=== PATIENT | male | born 1995 | race Caucasian/White ===

== ENCOUNTER 2016-08-17 11:26 | Inpatient (IN) | payer OTHER ==
[~2016-08-17] VITALS: Ht 180.3 cm; Wt 82.2 kg
[2016-08-17] VITALS (7 sets, daily range): BP systolic 125–133; BP diastolic 57–67
[2016-08-17 12:51] LABS: BASOPHIL COUNT 0.1 K/uL (0-0.1); EOSINOPHIL (%) 1.8 % (0-5); EOSINOPHIL COUNT 0.3 K/uL (0-0.3); HEMATOCRIT 45.6 % (38.0-50.0); IMMATURE GRANULOCYTE (%) 1.5 % (0.0-0.7); IMMATURE GRANULOCYTE COUNT 0.2 K/uL; INSTRUMENT ABS NEUTROPHIL CT 12.9 K/uL; LYMPHOCYTE COUNT 1.2 K/uL (1.0-2.8); MCH 30.2 PG (29.0-34.0); MCHC 33.6 G/DL (30.0-36.0); MCV 89.9 FL (86-99); MEAN PLAT.VOLUME 9.5 uM^3 (9.0-12.4); MONOCYTE (%) 6.5 % (3-12); NEUTROPHIL COUNT 12.9 K/uL (1.8-6.4); PLATELET COUNT 199 K/uL (156-360); RBC DIS.WIDTH-CV 13.5 % (11.8-14.6); RBC DIS.WIDTH-SD 44.8 % (39-53); RED BLOOD COUNT 5.07 M/uL (4.00-5.50); WHITE BLOOD COUNT 15.7 K/uL (4.1-10.2)
[2016-08-17 13:00] LABS: AMYLASE 62 IU/L (1-118); CHLORIDE 109 mEq/L (99-109); POTASSIUM 4.4 mEq/L (3.7-5.4); SODIUM 140 mEq/L (136-147)
[2016-08-17 13:02] LABS: GLUCOSE 98 mg/dL (70-99)
[2016-08-17 13:03] LABS: ANION GAP 16 MEQ/L (2-14)
[2016-08-17 13:05] LABS: GFR ESTIMATE (CALCULATED) > 59 mL/min/; SERUM ETHYL ALCOHOL < 10 mg/dL
[2016-08-17 13:06] LABS: UREA NITROGEN (BUN) 24 mg/dL (9-23)
[2016-08-17 13:06] LABS: ADD MIUA? YES; BILIRUBIN NEGATIVE; BLOOD LARGE; COLOR YELLOW ((YELLOW)); GLUCOSE (STRIP) NEGATIVE; KETONES NEGATIVE; LEUKOCYTES NEGATIVE; NITRITE NEGATIVE; PROTEIN (STRIP) 30; SPECIFIC GRAVITY 1.043 (1.000-1.030); UROBILINOGEN 0.2 MG/DL (0.2-1.0)
[2016-08-17 13:08] LABS: LIPASE 51 U/L (1.0-51.0)
[2016-08-17 13:22] LABS: BACTERIA RARE /HPF; EPITHELIAL CELLS RARE /HPF; MUCUS TRACE /LPF; RED BLOOD CELLS TNTC /HPF (0-5); UCUL ADDED? NO
[2016-08-17 13:24] LABS: ADD MEDTOX COMMENT Y; AMPHETAMINE NEGATIVE (500 ng/mL); BARBITURATES NEGATIVE (200 ng/mL); BENZODIAZEPINES NEGATIVE (150 ng/mL); COCAINE NEGATIVE (150 ng/mL); INTERNAL CONTROLS VALID? YES; METHADONE NEGATIVE (200 ng/mL); METHAMPHETAMINE NEGATIVE (500 ng/mL); OPIATES (MORPHINE) PRESUMPTIVE POSITIVE (100 ng/mL); OXYCODONE NEGATIVE (100 ng/mL); PHENCYCLIDINE NEGATIVE (25 ng/mL); PROPOXYPHENE NEGATIVE (300 ng/mL); THC CANNABINOIDS PRESUMPTIVE POSITIVE (50 ng/mL); TRICYCLIC ANTIDEPRESSANTS NEGATIVE (300 ng/mL)
[2016-08-17] MEDS ORDERED: RISPERIDONE2 MG PO (14:47)
[2016-08-17] MEDS ORDERED: RISPERIDONE0.5 MG PO (14:47)
[2016-08-17] MEDS ORDERED: LAMICTAL100 MG PO (14:48)
[2016-08-17 18:09] LABS: METH RESISTANT S AUREUS PCR NEGATIVE (NEGATIVE)
[2016-08-17 19:04] LABS: PROBE CHECK PASS; SPECIMEN PROCESSING CONTROL PASS
[2016-08-18] VITALS (16 sets, daily range): BP systolic 115–141; BP diastolic 46–89
[2016-08-18 06:22] LABS: HEMATOCRIT 39.3 % (38.0-50.0); MCH 30.3 PG (29.0-34.0); MCHC 33.8 G/DL (30.0-36.0); MCV 89.5 FL (86-99); MEAN PLAT.VOLUME 9.3 uM^3 (9.0-12.4); PLATELET COUNT 202 K/uL (156-360); RBC DIS.WIDTH-CV 13.3 % (11.8-14.6); RBC DIS.WIDTH-SD 44.2 % (39-53); RED BLOOD COUNT 4.39 M/uL (4.00-5.50)
[2016-08-18 06:23] LABS: WHITE BLOOD COUNT 9.9 K/uL (4.1-10.2)
[2016-08-18 06:47] LABS: ALKALINE PHOSPHATASE 62 IU/L (3-129); ANION GAP 10 MEQ/L (2-14); CHLORIDE 100 MEQ/L (99-109); GFR ESTIMATE (CALCULATED) > 59 mL/min/; POTASSIUM 4.4 MEQ/L (3.7-5.4); SAMPLE HEMOLYSIS CHECK 0; SAMPLE ICTERIC CHECK 0; SAMPLE LIPEMIA CHECK 0; SODIUM 135 MEQ/L (136-147); TOTAL BILIRUBIN 0.6 MG/DL (0.0-1.0); UREA NITROGEN (BUN) 15 mg/dL (9-23)
[2016-08-18 06:50] LABS: GLUCOSE 151 mg/dL (70-99)
[2016-08-18 10:30] LABS: TROP-I INTERPRETATION NEGATIVE; TROPONIN-I 0.03 ng/mL (0.0-0.30)
[2016-08-18 10:32] LABS: CK-MB 13.4 ng/mL (0.0-4.9)
[2016-08-18 10:43] LABS: TOTAL CK 1314 IU/L (1-294)
[2016-08-18 10:44] LABS: CREATINE KINASE 1314 IU/L (1-294)
[2016-08-19] VITALS (18 sets, daily range): BP systolic 90–141; BP diastolic 42–71
[2016-08-19 06:31] LABS: ANION GAP 6 MEQ/L (2-14); CHLORIDE 101 MEQ/L (99-109); GFR ESTIMATE (CALCULATED) > 59 mL/min/; GLUCOSE 119 mg/dL (70-99); SAMPLE HEMOLYSIS CHECK 0; SAMPLE ICTERIC CHECK 0; SAMPLE LIPEMIA CHECK 0; SODIUM 135 MEQ/L (136-147); UREA NITROGEN (BUN) 14 mg/dL (9-23)
[2016-08-19 07:05] LABS: MCHC 34.5 G/DL (30.0-36.0); MCV 89.8 FL (86-99); MEAN PLAT.VOLUME 9.7 uM^3 (9.0-12.4); NRBC (%) 0.3 /100 WBC (0-0); PLATELET COUNT 165 K/uL (156-360); RBC DIS.WIDTH-CV 13.2 % (11.8-14.6); RBC DIS.WIDTH-SD 43.8 % (39-53)
[2016-08-19 07:29] LABS: RED BLOOD COUNT 3.23 M/uL (4.00-5.50)
[2016-08-20] VITALS (9 sets, daily range): BP systolic 112–131; BP diastolic 54–66
[2016-08-20 06:02] LABS: HEMATOCRIT 28.7 % (38.0-50.0); MCH 30.4 PG (29.0-34.0); MCHC 33.4 G/DL (30.0-36.0); MCV 90.8 FL (86-99); MEAN PLAT.VOLUME 9.2 uM^3 (9.0-12.4); PLATELET COUNT 150 K/uL (156-360); RBC DIS.WIDTH-CV 13.1 % (11.8-14.6); RBC DIS.WIDTH-SD 43.8 % (39-53); RED BLOOD COUNT 3.16 M/uL (4.00-5.50); WHITE BLOOD COUNT 6.2 K/uL (4.1-10.2)
[2016-08-20 06:29] LABS: ANION GAP 7 MEQ/L (2-14); CHLORIDE 101 MEQ/L (99-109); GFR ESTIMATE (CALCULATED) > 59 mL/min/; GLUCOSE 119 mg/dL (70-99); POTASSIUM 3.8 MEQ/L (3.7-5.4); SAMPLE HEMOLYSIS CHECK 0; SAMPLE ICTERIC CHECK 0; SAMPLE LIPEMIA CHECK 0; SODIUM 135 MEQ/L (136-147); UREA NITROGEN (BUN) 11 mg/dL (9-23)
[2016-08-21] VITALS (7 sets, daily range): BP systolic 110–140; BP diastolic 50–66
[2016-08-21 06:08] LABS: HEMATOCRIT 29.2 % (38.0-50.0); MCH 30.6 PG (29.0-34.0); MCHC 33.9 G/DL (30.0-36.0); MCV 90.1 FL (86-99); MEAN PLAT.VOLUME 9.2 uM^3 (9.0-12.4); PLATELET COUNT 189 K/uL (156-360); RBC DIS.WIDTH-CV 12.8 % (11.8-14.6); RBC DIS.WIDTH-SD 42.4 % (39-53); RED BLOOD COUNT 3.24 M/uL (4.00-5.50); WHITE BLOOD COUNT 6.5 K/uL (4.1-10.2)
[2016-08-21 06:35] LABS: ANION GAP 8 MEQ/L (2-14); CHLORIDE 102 MEQ/L (99-109); GFR ESTIMATE (CALCULATED) > 59 mL/min/; GLUCOSE 103 mg/dL (70-99); SAMPLE HEMOLYSIS CHECK 0; SAMPLE ICTERIC CHECK 0; SAMPLE LIPEMIA CHECK 0; SODIUM 136 MEQ/L (136-147); UREA NITROGEN (BUN) 11 mg/dL (9-23)
[2016-08-22] VITALS: BP 152/67
[2016-08-22 04:55] LABS: MCH 30.8 PG (29.0-34.0); MCHC 35.2 G/DL (30.0-36.0); MCV 87.6 FL (86-99); MEAN PLAT.VOLUME 8.8 uM^3 (9.0-12.4); PLATELET COUNT 235 K/uL (156-360); RBC DIS.WIDTH-CV 12.5 % (11.8-14.6); RBC DIS.WIDTH-SD 40.3 % (39-53); RED BLOOD COUNT 3.54 M/uL (4.00-5.50); WHITE BLOOD COUNT 7.6 K/uL (4.1-10.2)
[2016-08-22 05:00] VITALS: BP 123/60
[2016-08-22 05:10] LABS: CHLORIDE 103 mEq/L (99-109); POTASSIUM 4.4 mEq/L (3.7-5.4); SODIUM 135 mEq/L (136-147)
[2016-08-22 05:11] LABS: GLUCOSE 105 mg/dL (70-99)
[2016-08-22 05:13] LABS: ANION GAP 8 MEQ/L (2-14)
[2016-08-22 05:15] LABS: GFR ESTIMATE (CALCULATED) > 59 mL/min/
[2016-08-22 05:16] LABS: UREA NITROGEN (BUN) 11 mg/dL (9-23)
[2016-08-22 08:00] VITALS: BP 122/74
[2016-08-22 12:00] VITALS: BP 118/49
[2016-08-22 20:28] VITALS: BP 139/68
[2016-08-23 00:19] VITALS: BP 125/73
[2016-08-23 04:18] VITALS: BP 135/83
[2016-08-23 07:00] VITALS: BP 137/69
[2016-08-23 12:24] VITALS: BP 127/74
[2016-08-23 15:34] VITALS: BP 134/60
[2016-08-23 19:44] VITALS: BP 142/72
[2016-08-24 00:04] VITALS: BP 141/66
[2016-08-24 04:29] VITALS: BP 136/74
[2016-08-24 08:06] VITALS: BP 138/70
[2016-08-24 11:16] VITALS: BP 148/64
[2016-08-24] MEDS ORDERED: SENNA LAX8.6 MG PO (11:31)
[2016-08-24] MEDS ORDERED: OXYCODONE HCL5 MG PO (11:31)
[2016-08-24] MEDS ORDERED: DOCUSATE SODIU100 MG PO (11:31)
[2016-08-24] MEDS ORDERED: MILK OF MAGNESI10 ML PO (11:31)
[2016-08-24] MEDS ORDERED: DULCOLAX10 MG PR (11:31)
[2016-08-24 17:12] VITALS: BP 138/66
[2016-08-25 00:20] VITALS: BP 128/69
[2016-08-25 08:01] VITALS: BP 137/59
[2016-08-25 16:24] VITALS: BP 114/64
== END 2016-08-25 18:05 | DRG 958 ==
LOC: EDBD 11:26 → TRA 11:26 → 3EAST 13:53 → EDOF 13:53 → 4WEST 13:53 → 3EAST 08-22 18:03
PROVIDERS: Emergency Medicine; Neurological Surgery; Surgery
DX: S52.022B Displaced fracture of olecranon process without intraarticular extension of left ulna, initial encounter for open fracture type I or II (principal); S06.5X0A Traumatic subdural hemorrhage without loss of consciousness, initial encounter; S27.322A Contusion of lung, bilateral, initial encounter; S06.6X0A Traumatic subarachnoid hemorrhage without loss of consciousness, initial encounter; S34.01XA Concussion and edema of lumbar spinal cord, initial encounter; S32.011A Stable burst fracture of first lumbar vertebra, initial encounter for closed fracture; S37.019A Minor contusion of unspecified kidney, initial encounter; S22.068A Other fracture of T7-T8 thoracic vertebra, initial encounter for closed fracture; S12.001A Unspecified nondisplaced fracture of first cervical vertebra, initial encounter for closed fracture; W14.XXXA Fall from tree, initial encounter; S27.0XXA Traumatic pneumothorax, initial encounter; S32.020A Wedge compression fracture of second lumbar vertebra, initial encounter for closed fracture; S22.20XA Unspecified fracture of sternum, initial encounter for closed fracture; J98.11 Atelectasis; S26.91XA Contusion of heart, unspecified with or without hemopericardium, initial encounter; G83.4 Cauda equina syndrome; F31.9 Bipolar disorder, unspecified; F12.10 Cannabis abuse, uncomplicated; R40.2412 Glasgow coma scale score 13-15, at arrival to emergency department; Y93.H2 Activity, gardening and landscaping; F17.210 Nicotine dependence, cigarettes, uncomplicated; S00.81XA Abrasion of other part of head, initial encounter; S84.91XA Injury of unspecified nerve at lower leg level, right leg, initial encounter; S00.211A Abrasion of right eyelid and periocular area, initial encounter; S70.311A Abrasion, right thigh, initial encounter; R00.1 Bradycardia, unspecified; F41.9 Anxiety disorder, unspecified; R33.9 Retention of urine, unspecified; K59.00 Constipation, unspecified; Y92.89 Other specified places as the place of occurrence of the external cause
CPT/HCPCS: 70450; 71010; 71260; 72040; 72100; 72125; 72129; 72132; 73070; 73080; 73650; 74177; 76000; 80048; 80053; 81003; 82150; 82306; 82550; 82553; 83690; 84484; 84999; 85025; 85027; 86900; 86901; 86920; 87086; 87641; 93005; 93306; 94799; 95938; 96125 GN; 97530 GO; 97530 GP; 99281; 99285; C1713; G0480; J0131; J0330; J0690; J1100; J1170; J1580; J1644; J2405; J2710; J2930; J3010; J3370; J7050; J7120; P9045; S0020; S0028